=== PATIENT | male | born 1955 | race Caucasian/White ===

== ENCOUNTER 2018-01-14 12:24 | Outpatient (CLI) ==
--- NOTE | 2018-01-14 13:49 | CT ---
EXAM: CTA CHEST (PE PROTOCOL) HISTORY: Shortness of breath TECHNIQUE: CTA chest with intravenous contrast. Multiplanar images were provided with 3-D reconstru ctions. FINDINGS: No comparison CT. There are large bilateral central pulmonary arterial filling defects consistent with thromboemboli be ginning at the distal aspects of the main pulmonary arteries. Thoracic aorta is within normal limits. Heart size is within normal limits. No pericardial effusion. Adjacent to the lateral right hemidiaphragmatic pleura there is a 1.3 cm nodular opacity and at the s warner level contralateral there is a smaller similar entity measuring 1 cm. These may represent areas of atelectasis, scarring or less likely nodule formation or pulmonary infarctions. Otherwise chronic -appearing interstitial changes diffusely. Normal vascularity. No pneumothorax or pleural fluid. The bones reveal diffuse degenerative endplate changes with osteophytic spurring. There is no signif icant reflux of contrast agent into the hepatic veins to indicate current right heart strain. There is a there are bilateral renal cortical cystic masses probably representing cysts. IMPRESSION: 1. Large bilateral central pulmonary arterial thromboemboli. No significant reflux of contrast agent into the hepatic veins currently seen to indicate definite right heart strain. 2. Nodular opacities in the cardiophrenic angles bilaterally as described in the second paragraph of report. These probably represent areas of atelectasis although follow-up CT may be beneficial. CRITICAL RESULT: I spoke with ordering physician Sanchez by phone about these pulmonary emboli at 1:4 0 p.m. on 01/14/2018.
--- NOTE | 2018-01-14 14:07 | US ---
EXAM: Bilateral lower extremity venous Doppler HISTORY: Concern for DVT with lower extremity pain, tenderness and swelling for several days. COMPARISON: None TECHNIQUE: Sonographic and Doppler evaluation of the bilateral lower extremity vessels from the comm on femoral through the anterior tibial veins were obtained. Augmentation and compression techniques were also performed. FINDINGS: There is complete thrombus in the right popliteal vein with partial thrombus in the right superficial femoral vein. The right lower extremity peroneal and posterior tibial veins demonstrate occlusive thrombus. Anterior tibial vein on the right is normal. The remaining bilateral lower extr emity venous structures are normal. Reflux was not evaluated. Incidentally noted are bilateral popl iteal arterial enlargement/aneurysm. Soft tissues demonstrate mild edema. IMPRESSION: 1. Occlusive thrombus in the right popliteal, peroneal and posterior tibial veins with partial throm bus in the superficial femoral vein. These results were called to Dr. Bradford with instructions for p atient to go to the office. 2. Incidentally noted bilateral popliteal arterial prominence versus aneurysm.
== END 2018-01-14 12:25 | disposition home or self-care (01) ==
LOC: RAD 12:24
PROVIDERS: ATTEND Family Medicine
DX: R06.02 Shortness of breath (principal); M79.89 Other specified soft tissue disorders